=== PATIENT | male | born 1970 | race American Indian/Alaskan Native ===

== ENCOUNTER 2019-12-26 09:05 | Emergency (ER) | payer OTHER ==
[2019-12-26 10:16] VITALS: BP 151/102
[2019-12-26] MEDS ORDERED: IBUPROFEN 800 MG TAB PO ONE (10:43)
--- NOTE | 2019-12-26 10:46 | Emergency Department Report ---
HPI - General Chief Complaint: Shoulder Injury Time Seen by Provider: 12/26/19 10:30 - HPI HPI: Room 5 The patient is a 49-year-old male present with a chief complaint of right neck and shoulder pain. The patient states for the past 5 days he has had pain in his right shoulder and neck. Patient states his pain radiates down his right upper extremity and occasionally has paresthesia/tingling in his fingers of the right hand. Patient states the pain is constant. Patient denies chest pain, shortness of breath or nausea/vomiting. Patient denies history of fever. Patient denies any recent trauma. Patient denies dysarthria or paresthesia elsewhere in the body. The patient came to the ED via public transportation ED Past Medical Hx - Past Medical History Previous Medical History?: No - Surgical History Past Surgical History?: Yes Additional Surgical History: right knee and left ankle surgery - Family History Family history: no significant - Social History Smoking Status: Never Smoker Substance Use Type: None (Denies illicit drug use), Alcohol (Occasional) - Medications Home Medications: Home Medications Medication Instructions Recorded Confirmed Last Taken Type Cyclobenzaprine [Flexeril] 10 mg PO TID PRN #14 tablet 12/26/19 Unknown Rx HYDROcodone/APAP 5-325 [[place] 1 each PO Q6HR PRN #14 tablet 12/26/19 Unknown Rx 5/325] Ibuprofen [Motrin 800 MG tab] 800 mg PO Q8HR PRN #20 tablet 12/26/19 Unknown Rx ED Review of Systems ROS: Stated complaint: RT SHOULDER/ARM PAIN Other details as noted in HPI Constitutional: denies: fever Eyes: denies: eye pain ENT: denies: throat pain Respiratory: denies: shortness of breath Cardiovascular: denies: chest pain Endocrine: no symptoms reported Gastrointestinal: denies: nausea, vomiting Genitourinary: denies: dysuria Musculoskeletal: arthralgia Neurological: paresthesias. denies: headache Physical Exam - Physical Exam Vital Signs: Vital Signs 12/26/19 09:53 Temperature 98 F Pulse Rate 71 Respiratory 18 Rate Blood Pressure 151/102 O2 Sat by Pulse 98 Oximetry Physical Exam: GENERAL: The patient is well-developed well-nourished male sitting on stretcher not appearing to be in acute distress. [] HEENT: Normocephalic. Atraumatic. Extraocular motions are intact. Patient has moist mucous membranes. NECK: Supple. No axial tenderness to palpation. Patient's pain is reproduced by turning his head to the left CHEST/LUNGS: Clear to auscultation. There is no respiratory distress noted. HEART/CARDIOVASCULAR: Regular. There is no tachycardia. There is no gallop rub or murmur. 2+ right radial pulse ABDOMEN: Abdomen is soft, nontender. Patient has normal bowel sounds. There is no abdominal distention. SKIN: There is no rash. There is no edema. There is no diaphoresis. NEURO: The patient is awake, alert, and oriented. The patient is cooperative. The patient has no focal neurologic deficits. The patient has normal speech. Normal sensation to light touch bilaterally MUSCULOSKELETAL: The patient's pain is reproduced with range of motion of the right shoulder as well as turning his head to the left. There is no evidence of acute injury. ED Course Vital Signs 12/26/19 09:53 Temperature 98 F Pulse Rate 71 Respiratory 18 Rate Blood Pressure 151/102 O2 Sat by Pulse 98 Oximetry ED Medical Decision Making - Lab Data Result diagrams: 12/26/19 11:04 12/26/19 11:04 - EKG Data -: EKG Interpreted by Me EKG shows normal: sinus rhythm Rate: normal - EKG Data When compared to previous EKG there are: previous EKG unavailable Interpretation: nonspecific ST-T wave pineda ( T wave inversion in lead III) - Radiology Data Radiology results: report reviewed (Cervical spine x-ray), image reviewed (Cervical spine x-ray) interpreted by me: Cervical spine x-ray-no acute fracture. Normal alignment. No foreign body seen [address] [id number] XRay Report Signed Patient: CHELSY COTA MR#: [id number] : 1970 Acct:[id number] Age/Sex: 49 / M ADM Date: 12/26/19 Loc: ED Attending Dr: Ordering Physician: DIVINA MACKENZIE MD Date of Service: 12/26/19 Procedure(s): XR spine cervical 2-3V Accession Number(s): [id number] cc: DIVINA MACKENZIE MD Fluoro Time In Minutes: CERVICAL SPINE 3 VIEWS INDICATION / CLINICAL INFORMATION: Right neck pain and shoulder pain. RUE paresthesia. COMPARISON: None available. FINDINGS: VERTEBRAE: No acute fracture. No significant malalignment. DISC SPACES / FACET JOINTS:Minimal disc space narrowing at C5-6 and C6-7. PARASPINAL SOFT TISSUES:No significant abnormality. ADDITIONAL FINDINGS: None. Signer Name: Danica Pacheco MD Signed: 12/26/2019 11:01 AM Workstation Name: [id number] Transcribed By: DT Dictated By: Johnathon Pacheco MD Electronically Authenticated By: Johnathon Pacheco MD Signed Date/Time: 12/26/19 1101 DD/ 1100 TD/TT: - Differential Diagnosis Cervical radiculopathy, rotator cuff injury, bursitis, ACS Critical care attestation.: If time is entered above; I have spent that time in minutes in the direct care of this critically ill patient, excluding procedure time. ED Disposition Clinical Impression: Cervical radiculopathy Disposition: TO HOME OR SELFCARE Is pt being admited?: No Does the pt Need Aspirin: No Condition: Stable Instructions: Cervical Radiculopathy, Radicular Pain Additional Instructions: Return to the emergency department should you develop worsening symptoms, inability to tolerate food or liquids, high fever or any other concerns Prescriptions: Cyclobenzaprine [Flexeril] 10 mg PO TID PRN #14 tablet PRN Reason: Muscle Spasm Ibuprofen [Motrin 800 MG tab] 800 mg PO Q8HR PRN #20 tablet PRN Reason: Pain, Moderate (4-6) HYDROcodone/APAP 5-325 [[place] 5/325] 1 each PO Q6HR PRN #14 tablet PRN Reason: Pain Referrals: BRYANNA SKAGGS MD [Staff Physician] - 2-3 Days (Dr. Skaggs is an orthopedic surgeon. Please follow-up with him for further evaluation) Time of Disposition: 12:20
--- NOTE | 2019-12-26 11:05 | XRay Report ---
CERVICAL SPINE 3 VIEWS INDICATION / CLINICAL INFORMATION: Right neck pain and shoulder pain. RUE paresthesia. COMPARISON: None available. FINDINGS: VERTEBRAE: No acute fracture. No significant malalignment. DISC SPACES / FACET JOINTS:Minimal disc space narrowing at C5-6 and C6-7. PARASPINAL SOFT TISSUES:No significant abnormality. ADDITIONAL FINDINGS: None. Signer Name: Danica Pacheco MD Signed: 12/26/2019 11:01 AM Workstation Name: [id number]
[2019-12-26 11:37] LABS: Hematocrit 46.7 % (35.5-45.6); Hemoglobin 15.9 gm/dl (11.8-15.2); Mean Corpuscular HGB Conc 34 % (32-34); Mean Corpuscular Volume 91 fl (84-94); Platelet Count 209 K/mm3 (140-440); Red Blood Count 5.15 M/mm3 (3.65-5.03); Red Cell Distribution Width 13.9 % (13.2-15.2)
[2019-12-26 11:55] LABS: Creatine Kinase MB 2.4 ng/mL (0.0-4.0)
[2019-12-26 12:01] LABS: BUN/Creatinine Ratio 11; Blood Urea Nitrogen 13 mg/dL (9-20); Calcium 9.5 mg/dL (8.4-10.2); Hemolysis Index 8
[2019-12-26 12:45] LABS: Total Cells Counted 100
[2019-12-26 12:50] LABS: Basophils % (Manual) 0 % (0.0-1.8)
[2019-12-26 13:03] LABS: Platelet Estimate Consistent w Auto; RBC Morphology Normal
== END 2019-12-26 12:25 | disposition home or self-care (01) ==
LOC: ED 09:05
DX: M54.12 Radiculopathy, cervical region (principal)
CPT/HCPCS: 36415; 72040; 80048; 82550; 82553; 84484; 85007; 85025; 93005